=== PATIENT | female | born 1955 | race Caucasian/White ===

== ENCOUNTER → 2018-12-15 | Outpatient (CLI) | payer BC ==
[~2018-12-15] MED LIST: Adipex-P37.5 M1 PO; BUPR150ER; NORT25; PHENTERMINE; PROBIOTIC; TOPI25 PO
== END | disposition home or self-care (01) ==
LOC: LAB SHORT 07:34 → PLD 07:34
DX: L82.1 Other seborrheic keratosis (principal); L81.4 Other melanin hyperpigmentation
CPT/HCPCS: 88305

== ENCOUNTER → 2020-11-28 | Outpatient (CLI) | payer BC | END | disposition home or self-care (01) | LOC: LAB SHORT 07:25 | DX: D48.5 Neoplasm of uncertain behavior of skin (principal) | CPT/HCPCS: 88305 ==

== ENCOUNTER → 2021-12-05 | Outpatient (CLI) | payer MEDICARE | END | disposition home or self-care (01) | LOC: LAB SHORT 09:15 | DX: D22.71 Melanocytic nevi of right lower limb, including hip (principal) | CPT/HCPCS: 88305 ==

== ENCOUNTER → 2022-12-09 | Outpatient (CLI) | payer MEDICARE | END | disposition home or self-care (01) | LOC: PLD 12:12 → LAB SHORT 12:12 | DX: L57.0 Actinic keratosis (principal) | CPT/HCPCS: 88305 ==